=== PATIENT | female | born 1945 | race Caucasian/White ===

== ENCOUNTER 2021-09-04 08:17 | Emergency (ER) | payer MEDICARE, OTHER ==
[~2021-09-04] VITALS: Ht 172.7 cm; Wt 68.0 kg
== END 2021-09-04 11:00 | disposition home or self-care (01) ==
LOC: ER 08:28
DX: S00.83XA Contusion of other part of head, initial encounter (principal); S30.0XXA Contusion of lower back and pelvis, initial encounter; W01.0XXA Fall on same level from slipping, tripping and stumbling without subsequent striking against object, initial encounter; Y93.01 Activity, walking, marching and hiking; Y92.008 Other place in unspecified non-institutional (private) residence as the place of occurrence of the external cause; E78.5 Hyperlipidemia, unspecified
CPT/HCPCS: 70450; 72125; 72131; 72192; 99283